=== PATIENT | male | born 1995 | race Hispanic/Latino ===

== ENCOUNTER 2019-12-30 13:10 | Emergency (ER) | payer BC ==
[2019-12-30 13:40] LABS: BASOPHILS % (AUTO) 0.7 % (0.0-5.0); EOSINOPHILS % (AUTO) 5.1 % (0.0-8.0); HEMATOCRIT 45.3 % (42-54); LYMPHOCYTES % (AUTO) 23.9 % (21.0-51.0); MEAN CORPUSCULAR HEMOGLOBIN 30.1 pg (27.0-33.0); MEAN CORPUSCULAR HGB CONC 33.8 g/dL (32.0-36.0); NEUTROPHILS % (AUTO) 61.5 % (40.0-77.0); PLATELET COUNT (AUTO) 251 K/uL (130-400); RED BLOOD CELL COUNT(AUTO) 5.09 MIL/uL (4.50-6.20); RED CELL DISTRIBUTION WIDTH 12.9 % (11.0-15.5); WHITE BLOOD COUNT (AUTO) 8.4 K/uL (4.8-10.8)
[2019-12-30 13:51] LABS: POTASSIUM 4.1 mmol/L (3.5-5.1)
[2019-12-30 13:55] LABS: ALBUMIN 3.6 g/dL (3.5-5.0); BILIRUBIN,TOTAL 0.3 mg/dL (0.2-1.0); TOTAL PROTEIN, SERUM 6.9 g/dL (6.0-8.3)
[2019-12-30 14:02] LABS: INR 0.9 (0.85-1.15); PARTIAL THROMBOPLASTIN TIME 25.8 SEC (26.3-35.5); PROTHROMBIN TIME 9.8 SEC (9.6-11.6)
[2019-12-30 15:06] LABS: B-TYPE NATRIURETIC PEPTIDE 20 pg/mL (0-100)
[2019-12-30] MEDS ORDERED: IOHEXOL-350 75 ML VIAL IV ONE (15:35)
[2019-12-30 15:37] LABS: APPEARANCE,URINE Clear (CLEAR); BILIRUBIN,URINE Negative (NEGATIVE); COLOR,URINE Yellow (YELLOW); GLUCOSE, URINE (UA) Negative (NEGATIVE); KETONES,URINE Negative (NEGATIVE); LEUKOCYTE ESTERASE ,URINE Negative (NEGATIVE); NITRATE,URINE Negative (NEGATIVE); OCCULT BLOOD,URINE Negative (NEGATIVE); PH,URINE 7.5 (5.0-8.0); PROTEIN,URINE Negative (NEGATIVE)
[2019-12-30 17:59] LABS: AMPHET/METH SCREEN,URINE NEGATIVE (NEGATIVE); BARBITURATE SCREEN, URINE NEGATIVE (NEGATIVE); BENZODIAZEPINES SCREEN,URINE NEGATIVE (NEGATIVE); CANNABINOID SCREEN,URINE NEGATIVE (NEGATIVE); COCAINE SCREEN,URINE NEGATIVE (NEGATIVE); OPIATE SCREEN,URINE NEGATIVE (NEGATIVE); PHENCYCLIDINE SCREEN,URINE NEGATIVE (NEGATIVE)
== END 2019-12-30 16:27 | disposition home or self-care (01) ==
LOC: EDH 13:10
DX: R60.0 Localized edema (principal); R79.1 Abnormal coagulation profile
CPT/HCPCS: 36415; 71045; 71275; 80053; 80305; 81003; 82550; 83880; 84484; 85025; 85378; 85610; 85730; 93005; 99285; Q9967

== ENCOUNTER 2020-01-12 13:30 | Emergency (ER) | payer BC ==
[2020-01-12] MEDS ORDERED: LIDOCAINE HCL 2% VISCOUS 15 ML UDCUP ONE (14:10)
[2020-01-12] MEDS ORDERED: MAG HYDROX/AL HYDROX/SIMETH ES 30 ML SUSP UDCUP ONE (14:10)
[2020-01-12] MEDS ORDERED: ONDANSETRON HCL 4 MG/2 ML VIAL ONE (14:10)
[2020-01-12 14:31] LABS: BASOPHILS % (AUTO) 0.4 % (0.0-5.0); EOSINOPHILS % (AUTO) 0.2 % (0.0-8.0); HEMATOCRIT 46.4 % (42-54); LYMPHOCYTES % (AUTO) 23.7 % (21.0-51.0); MEAN CORPUSCULAR HEMOGLOBIN 30.1 pg (27.0-33.0); MEAN CORPUSCULAR HGB CONC 35.1 g/dL (32.0-36.0); MEAN CORPUSCULAR VOLUME 85.8 fL (79-99); MONOCYTES % (AUTO) 7.6 % (3.0-13.0); NEUTROPHILS % (AUTO) 67.8 % (40.0-77.0); PLATELET COUNT (AUTO) 346 K/uL (130-400); RED BLOOD CELL COUNT(AUTO) 5.41 MIL/uL (4.50-6.20); RED CELL DISTRIBUTION WIDTH 12.3 % (11.0-15.5); WHITE BLOOD COUNT (AUTO) 12.2 K/uL (4.8-10.8)
[2020-01-12 14:32] LABS: APPEARANCE,URINE Clear (CLEAR); BILIRUBIN,URINE Negative (NEGATIVE); COLOR,URINE Yellow (YELLOW); GLUCOSE, URINE (UA) Negative (NEGATIVE); KETONES,URINE Trace mg/dL (NEGATIVE); LEUKOCYTE ESTERASE ,URINE Negative (NEGATIVE); NITRATE,URINE Negative (NEGATIVE); OCCULT BLOOD,URINE Negative (NEGATIVE); PROTEIN,URINE Negative (NEGATIVE)
[2020-01-12 14:39] LABS: AMPHET/METH SCREEN,URINE NEGATIVE (NEGATIVE); BARBITURATE SCREEN, URINE NEGATIVE (NEGATIVE); BENZODIAZEPINES SCREEN,URINE NEGATIVE (NEGATIVE); CANNABINOID SCREEN,URINE NEGATIVE (NEGATIVE); COCAINE SCREEN,URINE NEGATIVE (NEGATIVE); OPIATE SCREEN,URINE NEGATIVE (NEGATIVE); PHENCYCLIDINE SCREEN,URINE NEGATIVE (NEGATIVE)
[2020-01-12 14:42] LABS: CREATININE 1.1 mg/dL (0.5-1.5); POTASSIUM 3.6 mmol/L (3.5-5.1)
[2020-01-12 14:45] LABS: ALBUMIN 4.6 g/dL (3.5-5.0); BILIRUBIN,TOTAL 0.8 mg/dL (0.2-1.0); TOTAL PROTEIN, SERUM 8.3 g/dL (6.0-8.3)
[2020-01-12 14:48] LABS: ACETAMINOPHEN < 1 mcg/mL (10-29); ALCOHOL, BLOOD < 3 mg/dL (0-10); SALICYLATE < 2.8 mg/dL (2.8-20.0)
== END 2020-01-12 18:03 | disposition home or self-care (01) ==
LOC: EDH 13:30
DX: K29.70 Gastritis, unspecified, without bleeding (principal); F41.1 Generalized anxiety disorder; Z87.891 Personal history of nicotine dependence
CPT/HCPCS: 36415; 70450; 80053; 80305; 81003; 83690; 84443; 85025; 93005; 96374; 99285; G0481; J2405

== ENCOUNTER 2020-02-21 15:01 | Emergency (ER) | payer BC, OTHER ==
[2020-02-21] MEDS ORDERED: HYDROXYZINE HCL 25 MG TABLET ONE (15:29)
== END 2020-02-21 15:33 | disposition home or self-care (01) ==
LOC: EDH 15:01
DX: B86 Scabies (principal)

== ENCOUNTER 2023-09-21 11:41 | Emergency (ER) | payer OTHER ==
[~2023-09-21] VITALS: Ht 172.7 cm; Wt 88.5 kg
[2023-09-21] MEDS: ONDANSETRON ODT 4MG TAB SL ONE (12:17)
[2023-09-21 12:31] LABS: BASOPHILS # (AUTO) 0.03 K/uL (0.00-0.20); BASOPHILS % (AUTO) 0.3 % (0.0-5.0); EOSINOPHILS # (AUTO) 0.15 K/uL (0.00-0.70); EOSINOPHILS % (AUTO) 1.4 % (0.0-8.0); HEMATOCRIT 44.6 % (42-54); IMMATURE GRANULOCYTE ABSOLUTE 0.05 K/uL (0-1); LYMPHOCYTES # (AUTO) 2.2 K/uL (1.0-4.8); LYMPHOCYTES % (AUTO) 20.3 % (21.0-51.0); MEAN CORPUSCULAR HEMOGLOBIN 30.2 pg (27.0-33.0); MEAN CORPUSCULAR VOLUME 86.4 fL (79-99); MONOCYTES % (AUTO) 9.6 % (3.0-13.0); NEUTROPHILS # (AUTO) 7.4 K/uL (1.8-7.7); NEUTROPHILS % (AUTO) 67.9 % (40.0-77.0); PLATELET COUNT (AUTO) 279 K/uL (130-400); RED BLOOD CELL COUNT(AUTO) 5.16 MIL/uL (4.50-6.20); RED CELL DISTRIBUTION WIDTH 12.4 % (11.0-15.5); WHITE BLOOD COUNT (AUTO) 10.9 K/uL (4.8-10.8)
[2023-09-21 12:45] LABS: MAGNESIUM 1.8 mg/dL (1.80-2.40); POTASSIUM 3.9 mmol/L (3.5-5.1)
[2023-09-21 12:46] LABS: APPEARANCE,URINE CLEAR (CLEAR); BILIRUBIN,URINE NEGATIVE (NEGATIVE); COLOR,URINE YELLOW (YELLOW); GLUCOSE, URINE (UA) NEGATIVE (NEGATIVE); KETONES,URINE NEGATIVE (NEGATIVE); LEUKOCYTE ESTERASE ,URINE NEGATIVE Leu/uL (NEGATIVE); NITRATE,URINE NEGATIVE (NEGATIVE); OCCULT BLOOD,URINE NEGATIVE (NEGATIVE); PROTEIN,URINE 30 mg/dL (NEGATIVE); UROBILINOGEN,URINE 0.2 mg/dL (0.2-1.0)
[2023-09-21 12:52] LABS: ADD UA MICROSCOPIC YES
[2023-09-21 13:00] LABS: BACTERIA,URINE RARE /HPF (None Seen); MUCUS,URINE MOD LPF (None Seen); RBC,URINE 0-1 /HPF (0-1); SQUAMOUS EPITHELIAL CELL,UR RARE /HPF (0-2)
[2023-09-21 13:15] LABS: INFLUENZA TYPE A Negative For Type A (NEGATIVE); INFLUENZA TYPE B Negative For Type B (NEGATIVE)
[2023-09-21] MEDS: HYOSCYAMINE SULFATE 0.125 MG TAB.SUBL SL ONE (14:07)
[2023-09-21] MEDS: 0.9%NACL 1000ML 1,000 ML IV ONE (14:07)
[2023-09-21] MEDS ORDERED: HYOS0.124 SL (14:47)
[2023-09-21] MEDS ORDERED: ONDA4TAB10 PO (14:47)
[2023-09-21 14:59] VITALS: BP 142/72; PULSE 89; RESP 18; O2SAT 98
== END 2023-09-21 15:08 | disposition home or self-care (01) ==
LOC: EDH 11:41
DX: K52.9 Noninfective gastroenteritis and colitis, unspecified (principal); E86.0 Dehydration; F17.200 Nicotine dependence, unspecified, uncomplicated; Z20.822 Contact with and (suspected) exposure to COVID-19; Z79.899 Other long term (current) drug therapy; Z98.890 Other specified postprocedural states
CPT/HCPCS: 99283; 96360; 83735; 80048; 85025; 87088; 87804 ×2; 81001; 36415; J7030

== ENCOUNTER 2024-08-19 11:28 | Emergency (ER) | payer SELFPAY ==
[~2024-08-19] VITALS: Ht 172.7 cm; Wt 99.8 kg
[~2024-08-19 11:28] MED LIST: HYOS0.124 SL; ONDA-243 PO
[2024-08-19 13:14] LABS: RAPID GROUP A STREP positive (NEGATIVE)
[2024-08-19 13:16] LABS: COVID19 (SARS ANTIGEN RAPID) PRESUMPTIVE NEGATIVE (NEGATIVE)
[2024-08-19] MEDS: acetaMINOPHEN 500 MG TABLET PO ONE (13:19)
[2024-08-19 14:02] LABS: INFLUENZA TYPE A Negative For Type A (NEGATIVE); INFLUENZA TYPE B Negative For Type B (NEGATIVE)
[2024-08-19] MEDS: 0.9%NACL 1000ML 1,000 ML IV ONE (14:49)
[2024-08-19] MEDS: cefTRIAXone 1G VIAL IVPB ONE (14:49)
[2024-08-19] MEDS ORDERED: AMOX500C2 PO (14:51)
--- NOTE | 2024-08-19 14:52 | ERN ---
General Chief Complaint: Fatigue Stated Complaint: HEADACHE HAVENT SLEPT 3 DAYS, CANT EAT, SLEEP Time Seen by MD: 11:29 Time Seen by Midlevel: 11:29 Source: patient History of Present Illness Initial Comments 29-year-old male presents to the emergency department due to fatigue Patient reports body aches, sore throat, headache. Denies abdominal pain, vomiting, diarrhea, difficulty breathing, trouble swallowing, or further associated symptoms. States his children tested positive for influenza. Patient states he has taken 10 mL of ibuprofen. Denies significant past medical history. Allergies: Coded Allergies: No Known Allergies (Unverified Allergy, Unknown, 09/21/23) Home Meds Active Scripts Amoxicillin (Amoxicillin) 500 Mg Capsule, 1 CAP PO BID for 10 Days, #20 CAP 0 Refills Prov:CATARINO PA 08/19/24 Hyoscyamine Sulfate (Levsin-Sl) 0.125 Mg Tab.subl, 0.125 MG SL q8 PRN for abdominal pain/cramping, #10 TAB.SL 0 Refills Prov:NICOLA BASURTO NP 09/21/23 Ondansetron (Ondansetron Odt) 4 Mg Tab.rapdis, 4 MG PO Q6HPRN PRN for nausea, #15 TAB 0 Refills Prov:NICOLA BASURTO NP 09/21/23 Past Medical History Past Medical History: No Pertinent History Past Surgical History: None Family History Family History: DM Social History Social History: Smokers, Drugs, ETOH, Lives with family ROS Dictation Constitutional: Positive for body aches, fatigue Negative for fever,chills, and weight loss Eyes: Negative for injury, pain,redness, and discharge ENT: Positive for sore throat Negative for injury,pain or swelling Cardiovascular: Negative for chest pain, palpitations, and edema Respiratory: Negative for shortness of breath, cough, and wheezing, Abdomen/GI: Negative for abdominal pain, nausea, vomiting, diarrhea, and constipation Back: Negative for injury and pain : Negative for painful urination, bleeding or discharge MS/Extremity: Negative for injury and deformity Skin: Negative for rash, and discoloration Neuro: Positive for headache Negative for weakness, numbness, tingling, and seizure Psych: Negative for suicide ideation, homicidal ideation, and hallucinations Physical Exam Physical Exam Dictation General: awake, alert, no acute distress Head/Face: Normocephalic, atraumatic Eyes: PERRL, EOMI, normal conjunctiva ENT: oral cavity clear, oral mucosa moist Neck: Supple, normal range of motion Cardiovascular: RRR, normal S1/S2 Respiratory: CTAB, no respiratory distress, no rales or wheezes Abdomen: Soft, non-tender, non-distended, no guarding or rebound. Skin: Warm, dry, normal turgor, no rash MS/Extremity: Pulses equal, no cyanosis, neurovascular intact, FROM Neuro: COAx4, GCS 15, strength 5/5, CN 2-12 intact, normal cerebellar exam, normal gait Psych: Normal behavior, mood, and affect normal Results Laboratory and Microbiology Lab and Micro Result Laboratory Tests Test 08/19/24 12:46 Influenza Type A Antigen Negative For Type A Influenza Type B Antigen Negative For Type B SARS-CoV-2 Antigen (Rapid) PRESUMPTIVE NEGATIVE Group A Streptococcus Rapid positive (NEGATIVE) *A Labs Reviewed?: Yes MDM MDM: Differential diagnosis: Influenza, strep, SARs, viral illness Rationale: 29-year-old male presents to the emergency department due to fatigue Patient reports body aches, sore throat, headache. Denies abdominal pain, vomiting, diarrhea, difficulty breathing, trouble swallowing, or further associated symptoms. States his children tested positive for influenza. Patient states he has taken 10 mL of ibuprofen. Denies significant past medical history. Per physical examination patient is in no acute distress, nonlabored breathing, nontoxic appearing, influenza and SARs negative. Strep positive. Patient was administered IV fluids, acetaminophen, and Rocephin in the ED. antibiotics prescribed for outpatient treatment. Patient educated on findings and diagnosis. Advised to follow up with PCP. Return to the emergency department if any worsening symptoms. Patient verbalized understanding. Patient stable for discharge. There are no social concerns with this patient. I independently interpreted the test that were performed, results were reviewed by me and considered findings on radiology if ordered. Medical management and examination interpretation discussions were had by me with other qualified healthcare professionals as indicated for the patient's care. ED Course Orders Procedure Category Date Status Time Covid19 (Sars Antigen LAB 08/19/24 Complete Rapid) 12:31 Influenza Type A & B, LAB 08/19/24 Complete Rapid 12:31 Rapid (Group A Strep) LAB 08/19/24 Complete 12:31 Acetaminophen 500mg PHA 08/19/24 Complete Tab (Tylenol 500mg T 13:00 Ceftriaxone 1g Vial PHA 08/19/24 Complete (Rocephine 1g Inj) 14:30 0.9%Nacl 1000ml (Ns PHA 08/19/24 Complete 1000ml) 14:30 Current Medications Medications (Trade) Dose Ordered Sig/Astrid Route PRN Reason Start Time Stop Time Status Last Admin Dose Admin Acetaminophen (TYLenol 500MG TAB) 1,000 mg ONCE ONCE PO 08/19/24 13:00 08/19/24 13:01 DC 08/19/24 13:19 Ceftriaxone Sodium (ROCEphine 1G INJ) 1 gm ONCE ONCE IVPB 08/19/24 14:30 08/19/24 14:31 DC 08/19/24 14:49 Sodium Chloride 1,000 ml @ 0 mls/hr ONCE ONCE IV 08/19/24 14:30 08/19/24 14:31 DC 08/19/24 14:49 Vital Signs Date Time Temp Pulse Resp B/P (MAP) Pulse Ox O2 Delivery O2 Flow Rate FiO2 08/19/24 15:31 98.2 80 16 124/76 95 Room Air* 0 21 08/19/24 12:22 98.2 94 16 134/79 95 Room Air* 0 21 08/19/24 12:22 98.2 94 16 134/79 95 Room Air 0 DX & DISP Disposition: Discharge Departure Impression: Primary Impression: Strep pharyngitis Condition: Stable Scripts Amoxicillin (Amoxicillin) 500 Mg Capsule 1 CAP PO BID for 10 Days, #20 CAP 0 Refills Prov: CATARINO PA 08/19/24 Additional Instructions: Discharge home. Rest. Follow up with primary care in 24 hours. Return to the ER for any acute changes or worsening symptoms. If any medications were prescribed take as directed. Okay to continue home medications unless otherwise discussed during your visit in the emergency room today. Patient was also advised to follow-up with primary care physician in 1 to 2 days for continued monitoring. Referrals: SELF,REFERRAL (PCP) I performed the substantive portion of the visit. I have reviewed and pe rsonally made and approve the management plan that is documented in the notes by myself or the NIKHIL. I acknowledge full responsibility for the patient's management plan. CATARINO PA Aug 19, 2024 14:51 GAY RENTERIA 1, 2025 10:15
[2024-08-19 15:31] VITALS: BP 124/76; PULSE 80; RESP 16; TEMP 98.2; O2SAT 95
== END 2024-08-19 16:13 | disposition home or self-care (01) ==
LOC: EDH 11:28
DX: J02.0 Streptococcal pharyngitis (principal); F17.200 Nicotine dependence, unspecified, uncomplicated; Z20.822 Contact with and (suspected) exposure to COVID-19; Z79.899 Other long term (current) drug therapy
CPT/HCPCS: 99284; 96365; 87426; 87880; 87804 ×2; J7030; J0696